=== PATIENT | female | born 1935 | race Two or more races ===

== ENCOUNTER → 2019-07-14 | Outpatient (CLI) | payer OTHER ==
[~2019-07-14] MED LIST: ASA81 MG PO; ATORVASTATIN PO; CARDIDOPA PO; CLONAZEPAM1 MG PO; COD LIVER OIL1 EACH PO; FISH OIL300 MG PO; FOLBIC RF TABL1 EACH PO; GABAPENTIN PO; LAMICTAL200 M1 PO; MAGNESIUM27 MG PO; MULTI VITAMIN1 EACH PO; NABUMETONE500 MG PO; PERCOCET 5/3251 TAB PO; SYNTHROID50 MCG PO
== END | disposition home or self-care (01) ==
LOC: RAD 09:49
DX: M17.10 Unilateral primary osteoarthritis, unspecified knee (principal)

== ENCOUNTER 2019-08-04 10:29 | Outpatient (CLI) | payer OTHER | END 2019-08-04 11:00 | disposition home or self-care (01) | LOC: RAD 10:29 | DX: I11.9 Hypertensive heart disease without heart failure (principal) ==

== ENCOUNTER 2019-11-15 11:02 | Outpatient (CLI) | payer OTHER | END 2019-11-15 11:04 | disposition home or self-care (01) | LOC: RAD 11:02 | DX: Z96.651 Presence of right artificial knee joint (principal) ==